=== PATIENT | female | born 1970 | race Caucasian/White ===

== ENCOUNTER → 2020-05-15 | Outpatient (CLI) | payer OTHER ==
[~2020-05-15] MED LIST: BUSPIRONE HCL10 MG PO; COQ-10100 MG PO; COREG 12.5MG12.5 MG PO; CYMBALTA60 MG PO; DECADRON6 MG PO; ECOTRIN81 MG PO; FENOFIBRATE160 MG PO; GLUCOPHAGE1000 MG PO; MAGOX 400400 MG PO; MULTIVITAMINS1 EAC1 PO; NEURONTIN400 MG PO; NEXIUM40 MG PO; NITROSTAT0.4 MG SL; NORCO 7.5-3251 EACH PO; PAXIL20 MG PO; PRINIVIL5 MG PO; RANEXA500 MG PO; SYNTHROID88 MCG PO; ZOCOR20 MG PO; ZOLPIDEM TARTRA10 MG PO; ZYRTEC10 MG PO
== END ==
LOC: ECHO 10:00
DX: I11.9 Hypertensive heart disease without heart failure (principal); I25.10 Atherosclerotic heart disease of native coronary artery without angina pectoris; I42.9 Cardiomyopathy, unspecified; R07.9 Chest pain, unspecified; I08.3 Combined rheumatic disorders of mitral, aortic and tricuspid valves; R93.1 Abnormal findings on diagnostic imaging of heart and coronary circulation
CPT/HCPCS: ECHO; 93306

== ENCOUNTER → 2021-01-15 | Outpatient (CLI) | payer MEDICARE, OTHER ==
[2021-01-15 16:23] LABS: BUN/CREATININE RATIO 11 (0-10)
[2021-01-16 11:14] LABS: CREATININE, URINE 32.9 mg/dL (Not Estab.); MICROALB/CREAT RATIO <9 (0-29)
== END ==
LOC: LAB 15:13
PROVIDERS: Internal Medicine Nephrology
DX: N17.9 Acute kidney failure, unspecified (principal)
CPT/HCPCS: 80053; 81001; 82043; 82570; 84156

== ENCOUNTER → 2021-02-05 | Outpatient (CLI) | payer MEDICARE, OTHER | LOC: MAMO 13:45 | DX: Z12.31 Encounter for screening mammogram for malignant neoplasm of breast (principal) | CPT/HCPCS: 77063; 77067 ==

== ENCOUNTER → 2021-03-17 | Outpatient (CLI) | payer MEDICARE, OTHER | LOC: MAMO 13:03 | DX: R92.8 Other abnormal and inconclusive findings on diagnostic imaging of breast (principal) | CPT/HCPCS: 76641-LT; 77065 ==

== ENCOUNTER → 2021-10-29 | Outpatient (CLI) | payer MEDICARE, OTHER | LOC: HEART 5 08:46 | DX: I25.119 Atherosclerotic heart disease of native coronary artery with unspecified angina pectoris (principal) | CPT/HCPCS: 78452; A9502; J2785 ==